=== PATIENT | male | born 1980 | race African-American/Black ===

== ENCOUNTER → 2018-12-21 | Outpatient (CLI) | payer BC, OTHER ==
[~2018-12-21] MED LIST: AMOX-355 PO; AZIT-21 PO; CYCL10TA9 PO; HYDR-3720 PO; NAPR-1071 PO; NAPR-243 PO; NAPR220T29 PO; PRD10T PO; PRD20T PO
[2018-12-21 11:15] LABS: BASOPHILS % (AUTO) 1 % (0-10); EOSINOPHILS # (AUTO) 0.1 10^3/uL (0.0-0.3); EOSINOPHILS % (AUTO) 3 % (0-10); HEMATOCRIT 44 % (40-54); HEMOGLOBIN 15.1 G/DL (13.3-17.7); LYMPHOCYTES # (AUTO) 1.3 X 10^3 (1.0-4.0); LYMPHOCYTES % (AUTO) 34 % (12-44); MEAN CORPUSCULAR HEMOGLOBIN 30 PG (25-34); MEAN CORPUSCULAR HGB CONC 34 G/DL (32-36); MEAN CORPUSCULAR VOLUME 89 FL (80-99); MEAN PLATELET VOLUME 9.6 FL (7.4-10.4); MONOCYTES # (AUTO) 0.6 X 10^3 (0.0-1.0); MONOCYTES % (AUTO) 15 % (0-12); NEUTROPHILS # (AUTO) 1.8 X 10^3 (1.8-7.8); NEUTROPHILS % (AUTO) 47 % (42-75); PLATELET COUNT 397 10^3/uL (130-400); RED CELL DISTRIBUTION WIDTH 14.4 % (10.0-14.5); WHITE BLOOD COUNT 3.8 10^3/uL (4.3-11.0)
[2018-12-21 13:17] LABS: ALANINE AMINOTRANSFERASE 15 U/L (0-55); ALBUMIN 4.2 GM/DL (3.2-4.5); ALKALINE PHOSPHATASE 48 U/L (40-136); BILIRUBIN,TOTAL 0.9 MG/DL (0.1-1.0); BUN/CREATININE RATIO 7; CALCIUM 9.5 MG/DL (8.5-10.1); CARBON DIOXIDE 24 MMOL/L (21-32); CHLORIDE 105 MMOL/L (98-107); CREATININE SERUM 1.14 MG/DL (0.60-1.30); GFR ESTIMATED > 60; GLUCOSE 61 MG/DL (70-105); LIPASE 36 U/L (8-78); POTASSIUM 3.6 MMOL/L (3.6-5.0); SODIUM 140 MMOL/L (135-145)
== END ==
LOC: LAB 10:38
PROVIDERS: ATTEND Family Medicine
DX: R63.4 Abnormal weight loss (principal); R11.10 Vomiting, unspecified; R10.10 Upper abdominal pain, unspecified
CPT/HCPCS: 36415; 80053; 83690; 85025

== ENCOUNTER 2019-04-28 14:29 | Emergency (ER) | payer SELFPAY ==
[~2019-04-28] VITALS: Ht 180 cm; Wt 77.2 kg
[2019-04-28] MEDS ORDERED: LACTATED RINGERS 1,000 ML IV ONE (15:18)
[2019-04-28 15:26] LABS: BASOPHILS % (AUTO) 0 % (0-10); EOSINOPHILS % (AUTO) 0 % (0-10); HEMATOCRIT 47 % (40-54); HEMOGLOBIN 16.9 G/DL (13.3-17.7); LYMPHOCYTES # (AUTO) 2.5 X 10^3 (1.0-4.0); LYMPHOCYTES % (AUTO) 32 % (12-44); MEAN CORPUSCULAR HEMOGLOBIN 31 PG (25-34); MEAN CORPUSCULAR HGB CONC 36 G/DL (32-36); MEAN CORPUSCULAR VOLUME 85 FL (80-99); MEAN PLATELET VOLUME 10.7 FL (7.4-10.4); MONOCYTES # (AUTO) 0.9 X 10^3 (0.0-1.0); MONOCYTES % (AUTO) 11 % (0-12); NEUTROPHILS # (AUTO) 4.5 X 10^3 (1.8-7.8); NEUTROPHILS % (AUTO) 57 % (42-75); PLATELET COUNT 440 10^3/uL (130-400); RED CELL DISTRIBUTION WIDTH 13.4 % (10.0-14.5)
[2019-04-28] MEDS ORDERED: PANTOPRAZOLE 40 MG (PROTONIX) VIAL IV ONE (15:30)
[2019-04-28] MEDS ORDERED: FAMOTIDINE 20MG/2ML IV (PEPCID) IVP ONE (15:30)
[2019-04-28] MEDS ORDERED: fentaNYL INJECTION 100 MCG/2 ML AMP IVP ONE (15:30)
[2019-04-28] MEDS ORDERED: ONDANSETRON 4 MG/2 ML (SDV) Z0FRAN IVP ONE (15:30)
[2019-04-28 15:39] LABS: PROTHROMBIN TIME PATIENT 13.4 SEC (12.2-14.7)
[2019-04-28 15:42] LABS: ALANINE AMINOTRANSFERASE 18 U/L (0-55); ALBUMIN 4.7 GM/DL (3.2-4.5); ALKALINE PHOSPHATASE 56 U/L (40-136); BILIRUBIN,TOTAL 1.1 MG/DL (0.1-1.0); BUN/CREATININE RATIO 8; CALCIUM 10.6 MG/DL (8.5-10.1); CARBON DIOXIDE 20 MMOL/L (21-32); CHLORIDE 100 MMOL/L (98-107); CREATININE SERUM 1.25 MG/DL (0.60-1.30); GFR ESTIMATED > 60; GLUCOSE 118 MG/DL (70-105); LIPASE 31 U/L (8-78); MAGNESIUM 1.9 MG/DL (1.6-2.4); POTASSIUM 3.5 MMOL/L (3.6-5.0); SODIUM 138 MMOL/L (135-145); TOTAL PROTEIN 9.4 GM/DL (6.4-8.2)
[2019-04-28] MEDS ORDERED: IOHEXOL 350 MG/ML 100 ML (OMNIPAQUE 350) VIAL IV ONE (16:00)
[2019-04-28] MEDS ORDERED: HOLD METFORMIN - RECEIVED CONTRAST 20 ML VIAL IV SCH (16:00)
[2019-04-28] MEDS ORDERED: CATHETER FLUSH 10 ML SYR IV PRN (16:00)
[2019-04-28] MEDS ORDERED: NS 100 ML (IVPB) BAG IV ONE (16:00)
[2019-04-28 16:05] LABS: OCCULT BLOOD,GASTRIC FLUID POSITIVE (NEGATIVE)
--- NOTE | 2019-04-28 16:39 | Diagnostic Imaging Report ---
EXAMINATION: CT Abdomen and Pelvis with intravenous contrast. TECHNIQUE: Multiple contiguous axial images were obtained through the abdomen and pelvis after the uneventful administration of intravenous contrast. All CT scans use one or more of the following dose optimizing techniques: automated exposure control, MA and/or KvP adjustment based on a patient size and exam type, or iterative reconstruction. HISTORY: Epigastric pain COMPARISON: 09/01/2013 FINDINGS: The previously seen perilymphatic nodules have mostly resolved with a few residual areas of perilymphatic nodularity suggestive of a history of sarcoidosis. The liver is normal without focal lesion. There is no biliary ductal dilation. Gallbladder is normal. Pancreas is normal. Spleen is normal. Adrenal glands are normal. The kidneys are normal. There is no hydronephrosis. Urinary bladder is normal. There are no dilated loops of large or small bowel. No obstruction or inflammation. No free fluid or air. No abdominal or pelvic lymphadenopathy. Aorta is normal in caliber without aneurysm. There are no suspicious osseus lesions. IMPRESSION: 1. No acute abnormality in the abdomen or pelvis. Dictated by: Dictated on workstation # [id number]
--- NOTE | 2019-04-28 16:53 | ED Abdominal Pain ---
General Chief Complaint: Abdominal/GI Problems Stated Complaint: SEVERE ABD PAIN Nursing Triage Note: c/o n/v x 3 days. reports having similar problem 1 year ago and 'having 3 holes in his stomach open, which they sewed closed' patient reports he believes one opened up. Sepsis Screen: No Definite Risk Source of Information: Patient Exam Limitations: No Limitations History of Present Illness Date Seen by Provider: Apr 28, 2019 Time Seen by Provider: 15:07 Initial Comments This 38-year-old man presents to the emergency room with escalating upper abdominal pain and vomiting for the past 3 days. He reports a history of perforated stomach ulcers that required surgery last April. He had been on medications for treatment of ulcers but stopped taking them a couple months ago. He has been vomiting with hematemesis for the past 3 days. He denies any fever, constipation, or diarrhea. He drank one beer 2 days ago but otherwise denies any frequent alcohol use. His primary care providers Dr. Montenegro. Allergies and Home Medications Allergies Coded Allergies: No Known Drug Allergies (Unverified , 09/01/13) Home Medications Cyclobenzaprine HCl 10 Mg Tablet, 10 MG PO Q8H PRN for SPASMS Prescribed by: MARY LUI on 01/08/16 1007 Naproxen 500 Mg Tablet, 500 MG PO BID Prescribed by: MARY LUI on 01/08/16 1007 Ondansetron 4 Mg Tab.rapdis, 4 MG SL Q4H PRN for NAUSEA/VOMITING Prescribed by: JAZMINE DELUNA on 04/28/19 174 Prednisone 20 Mg Tab, 40 MG PO DAILY Prescribed by: MARY LUI on 01/08/16 1007 Sucralfate 1 Gm Tablet, 1 GM PO QID Crash and mix with about 10 ML of water to make a slurry. Take 30 minutes before meals and bedtime Prescribed by: JAZMINE DELUNA on 04/28/19 174 Patient Home Medication List Home Medication List Reviewed: Yes Review of Systems Review of Systems Constitutional: no symptoms reported EENTM: No Symptoms Reported Respiratory: No Symptoms Reported Cardiovascular: No Symptoms Reported Gastrointestinal: See HPI Genitourinary: No Symptoms Reported Musculoskeletal: no symptoms reported Skin: no symptoms reported Psychiatric/Neurological: No Symptoms Reported Endocrine: No Symptoms Reported Hematologic/Lymphatic: See HPI Past Bcfrioz-Pwevjf-Dnjtze Hx Past Med/Social Hx: Reviewed and Corrections made Patient Social History Alcohol Use: Denies Use Recreational Drug Use: No Smoking Status: Never a Smoker Recent Foreign Travel: No Contact w/Someone Who Travel: No Recent Infectious Disease Expo: No Immunizations Up To Date Tetanus Booster (TDap): Less than 5yrs Past Medical History Surgeries: Yes (ACLS/MENISCUS L KNEE) Abdominal (Repair of perforated stomach ulcer) Respiratory: Yes (MULTIPLE NODULES/ SARCOIDOSIS) Cardiac: No Neurological: No Reproductive Disorders: No Sexually Transmitted Disease: No Gastrointestinal: Yes Ulcer Musculoskeletal: No Endocrine: No Cancer: No Psychosocial: No Integumentary: No Blood Disorders: No Physical Exam Vital Signs Vital Signs - First Documented 04/28/19 14:39 Temp 37.2 Pulse 95 Resp 26 B/P (MAP) 137/110 (119) Pulse Ox 100 Capillary Refill : Less Than 3 Seconds Height/Weight/BMI Height: 5'11" Weight: 200lbs. oz. 90.386103tg; 23.00 BMI Method:Stated General Appearance: WD/WN, mild distress HEENT: PERRL/EOMI, normal ENT inspection Neck: normal inspection Respiratory: lungs clear, normal breath sounds, no respiratory distress, no accessory muscle use Cardiovascular: regular rate, rhythm, no edema, no murmur Gastrointestinal: normal bowel sounds, soft, guarding, tenderness (Marked tenderness in the epigastrium) Extremities: normal inspection, no pedal edema Neurologic/Psychiatric: personal care assistant II-XII nml as tested, no motor/sensory deficits, alert, normal mood/affect, oriented x 3 Skin: normal color, warm/dry Progress/Results/Core Measures Results/Orders Lab Results Laboratory Tests Test 04/28/19 14:45 04/28/19 15:18 04/28/19 17:24 Range/Units White Blood Count 8.0 4.3-11.0 10^3/uL Red Blood Count 5.52 4.35-5.85 10^6/uL Hemoglobin 16.9 13.3-17.7 G/DL Hematocrit 47 40-54 % Mean Corpuscular Volume 85 80-99 FL Mean Corpuscular Hemoglobin 31 25-34 PG Mean Corpuscular Hemoglobin Concent 36 32-36 G/DL Red Cell Distribution Width 13.4 10.0-14.5 % Platelet Count 440 H 130-400 10^3/uL Mean Platelet Volume 10.7 H 7.4-10.4 FL Neutrophils (%) (Auto) 57 42-75 % Lymphocytes (%) (Auto) 32 12-44 % Monocytes (%) (Auto) 11 0-12 % Eosinophils (%) (Auto) 0 0-10 % Basophils (%) (Auto) 0 0-10 % Neutrophils # (Auto) 4.5 1.8-7.8 X 10^3 Lymphocytes # (Auto) 2.5 1.0-4.0 X 10^3 Monocytes # (Auto) 0.9 0.0-1.0 X 10^3 Eosinophils # (Auto) 0.0 0.0-0.3 10^3/uL Basophils # (Auto) 0.0 0.0-0.1 10^3/uL Prothrombin Time 13.4 12.2-14.7 SEC INR Comment 1.0 0.8-1.4 Activated Partial Thromboplast Time 26 24-35 SEC Sodium Level 138 135-145 MMOL/L Potassium Level 3.5 L 3.6-5.0 MMOL/L Chloride Level 100 98-107 MMOL/L Carbon Dioxide Level 20 L 21-32 MMOL/L Anion Gap 18 H 5-14 MMOL/L Blood Urea Nitrogen 10 7-18 MG/DL Creatinine 1.25 0.60-1.30 MG/DL Estimat Glomerular Filtration Rate > 60 BUN/Creatinine Ratio 8 Glucose Level 118 H 70-105 MG/DL Calcium Level 10.6 H 8.5-10.1 MG/DL Corrected Calcium 8.5-10.1 MG/DL Magnesium Level 1.9 1.6-2.4 MG/DL Total Bilirubin 1.1 H 0.1-1.0 MG/DL Aspartate Amino Transf (AST/SGOT) 25 5-34 U/L Alanine Aminotransferase (ALT/SGPT) 18 0-55 U/L Alkaline Phosphatase 56 40-136 U/L Total Protein 9.4 H 6.4-8.2 GM/DL Albumin 4.7 H 3.2-4.5 GM/DL Lipase 31 8-78 U/L Serum Alcohol < 10 <10 MG/DL Gastric Fluid Occult Blood POSITIVE H NEGATIVE Urine Opiates Screen NEGATIVE NEGATIVE Urine Oxycodone Screen NEGATIVE NEGATIVE Urine Methadone Screen NEGATIVE NEGATIVE Urine Propoxyphene Screen NEGATIVE NEGATIVE Urine Barbiturates Screen NEGATIVE NEGATIVE Ur Tricyclic Antidepressants Screen NEGATIVE NEGATIVE Urine Phencyclidine Screen NEGATIVE NEGATIVE Urine Amphetamines Screen NEGATIVE NEGATIVE Urine Methamphetamines Screen NEGATIVE NEGATIVE Urine Benzodiazepines Screen POSITIVE H NEGATIVE Urine Cocaine Screen NEGATIVE NEGATIVE Urine Cannabinoids Screen POSITIVE H NEGATIVE My Orders Orders - JAZMINE PARIKH MD Alcohol (04/28/19 15:18) Cbc With Automated Diff (04/28/19 15:18) Comprehensive Metabolic Panel (04/28/19:18) Lipase (04/28/19:18) Magnesium (04/28/19 15:18) Protime With Inr (04/28/19 15:18) Partial Thromboplastin Time (04/28/19 15:18) Ed Iv/Invasive Line Start (04/28/19:18) Lactated Ringers (Lr 1000 Ml Iv Solution (04/28/19 15:18) Pantoprazole Injection (Protonix Injecti (04/28/19 15:30) Famotidine Injection (Pepcid Injection) (04/28/19 15:30) Fentanyl Injection (Sublimaze Injection (04/28/19 15:30) Ondansetron Injection (Zofran Injectio (04/28/19 15:30) Ct Abdomen/Pelvis W (04/28/19 15:43) Occult Blood,Gastric Fluid (04/28/19 15:44) Iohexol Injection (Omnipaque 350 Mg/Ml 1 (04/28/19 16:00) Received Contrast (Hold Metformin- Contr (04/28/19 16:00) Sodium Chloride Flush (Catheter Flush Sy (04/28/19 16:00) Ns (Ivpb) (Sodium Chloride 0.9% Ivpb Bag (04/28/19 16:00) Occult Blood,Gastric Fluid (04/28/19 15:54) Drug Screen Stat (Urine) (04/28/19 16:03) Medications Given in ED Current Medications Medications Dose Ordered Sig/David Route Start Time Stop Time Status Last Admin Dose Admin Famotidine 20 mg ONCE ONCE IVP 04/28/19 15:30 04/28/19 15:31 DC 04/28/19 15:36 20 MG Fentanyl Citrate 75 mcg ONCE ONCE IVP 04/28/19 15:30 04/28/19 15:31 DC 04/28/19 15:36 75 MCG Iohexol 100 ml ONCE ONCE IV 04/28/19 16:00 04/28/19 16:01 DC 04/28/19 16:25 97 ML Lactated Ringer's 1,000 ml @ 0 mls/hr Q0M ONCE IV 04/28/19 15:18 04/28/19 15:22 DC 04/28/19 15:36 0 MLS/HR Ondansetron HCl 8 mg ONCE ONCE IVP 04/28/19 15:30 04/28/19 15:31 DC 04/28/19 15:36 8 MG Pantoprazole 80 mg ONCE ONCE IV 04/28/19 15:30 04/28/19 15:31 DC 04/28/19 15:36 80 MG Sodium Chloride 10 ml NEEDED PRN IV 04/28/19 16:00 04/28/19 18:23 DC 04/28/19 16:25 10 ML Sodium Chloride 100 ml ONCE ONCE IV 04/28/19 16:00 04/28/19 16:01 DC 04/28/19 16:25 80 ML Vital Signs/I&O 04/28/19 04/28/19 14:39 18:23 Temp 37.2 37.2 Pulse 95 88 Resp 26 26 B/P (MAP) 137/110 (119) 143/98 (119) Pulse Ox 100 100 Blood Pressure Mean: 119 Progress Progress Note : Progress Note Patient was treated with Zofran, Protonix, and Pepcid. Labs were obtained along with CT for further evaluation. There is no evidence of acute abdomen on imaging. Fentanyl was given for pain control. Patient was dismissed with prescriptions and instructions to seek endoscopy promptly. He received a liter of IV fluid and had no further vomiting after treatment. Diagnostic Imaging Diagonstic Imaging: CT Plain Films/CT/US/NM/MRI: abdomen, pelvis Comments CT abdomen and pelvis viewed by me and report reviewed. See report below: NAME: CLAUDIA BRADY [facility] REC#: [id number] PT STATUS: REG ER : 1980 PHYSICIAN: JAZMINE PARIKH MD ADMIT DATE: 04/28/19/ER Signed Date of Exam: 04/28/19 CT ABDOMEN/PELVIS W EXAMINATION: CT Abdomen and Pelvis with intravenous contrast. TECHNIQUE: Multiple contiguous axial images were obtained through the abdomen and pelvis after the uneventful administration of intravenous contrast. All CT scans use one or more of the following dose optimizing techniques: automated exposure control, MA and/or KvP adjustment based on a patient size and exam type, or iterative reconstruction. HISTORY: Epigastric pain COMPARISON: 09/01/2013 FINDINGS: The previously seen perilymphatic nodules have mostly resolved with a few residual areas of perilymphatic nodularity suggestive of a history of sarcoidosis. The liver is normal without focal lesion. There is no biliary ductal dilation. Gallbladder is normal. Pancreas is normal. Spleen is normal. Adrenal glands are normal. The kidneys are normal. There is no hydronephrosis. Urinary bladder is normal. There are no dilated loops of large or small bowel. No obstruction or inflammation. No free fluid or air. No abdominal or pelvic lymphadenopathy. Aorta is normal in caliber without aneurysm. There are no suspicious osseus lesions. IMPRESSION: 1. No acute abnormality in the abdomen or pelvis. Dictated by: Dictated on workstation # [id number] Dict: 04/28/19 1633 Trans: 04/28/19 1637 Interpreted by: SOFÍA DOBBINS MD Electronically signed by: SOFÍA DOBBINS MD 04/28/19 1637 Departure Impression Primary Impression: Hematemesis Qualified Codes: K92.0 - Hematemesis Additional Impressions: Epigastric pain History of stomach ulcers Disposition: 01 HOME, SELF-CARE Condition: Improved Departure-Patient Inst. Decision time for Depature: 17:36 Referrals: CARLOTTA CARTER RICHARD A DO (PCP/Family) Primary Care Physician Patient Instructions: Acid Reflux (Gastroesophageal Reflux Disease) in Adults, Gastritis (DC), Acute Abdomen (Belly Pain), Adult (DC) Add. Discharge Instructions: 1. Obtain omeprazole and Pepcid (famotidine) [id number]. Take omeprazole 20 mg twice daily and famotidine 20 mg twice daily for at least one month. 2. Also take Carafate (sucralfate) as prescribed. Take this 30 minutes before eating or drinking at mealtimes and before bed (4 times daily). 3. Follow-up with Dr. Montenegro as soon as possible. 4. Follow-up with a surgeon such as a Dr. Carter as soon as possible for endoscopy. 5. Avoid the following: Eating large meals, eating close to bedtime, caffeine, carbonation, chocolate, citrus fruits and juices, tomato products, alcohol, tobacco, mints, spicy foods, fatty or greasy foods, NSAID medications such as ibuprofen or naproxen, or anything else you know irritates your stomach. 6. Return to emergency room if you have worsening symptoms despite treatment. 7. You may use Zofran (ondansetron) as prescribed for nausea and vomiting. All discharge instructions reviewed with patient and/or family. Voiced understanding. Scripts Ondansetron (Ondansetron Odt) 4 Mg Tab.rapdis 4 MG SL Q4H PRN for NAUSEA/VOMITING, #10 TAB Prov: JAZMINE PARIKH MD 04/28/19 Sucralfate (Carafate) 1 Gm Tablet 1 GM PO QID, #120 TAB Crash and mix with about 10 ML of water to make a slurry. Take 30 minutes before meals and bedtime Prov: JAZMINE PARIKH MD 04/28/19 Copy Copies To 1: CARLOTTA CARTER DO Copies To 2: ENZO MONTENEGRO DO JAZMINE PARIKH MD Apr 28, 2019 16:53
[2019-04-28] MEDS ORDERED: ONDA4TAB11 SL (17:43)
[2019-04-28] MEDS ORDERED: SUCR1TAB36 PO (17:43)
[2019-04-28 17:46] LABS: AMPHETAMINE SCREEN, URINE NEGATIVE (NEGATIVE); BARBITURATE SCREEN URINE NEGATIVE (NEGATIVE); BENZODIAZEPINES SCREEN URINE POSITIVE (NEGATIVE); CANNABINOID SCREEN, URINE POSITIVE (NEGATIVE); COCAINE SCREEN URINE NEGATIVE (NEGATIVE); METHADONE STAT NEGATIVE (NEGATIVE); METHAMPHETAMINE SCREEN URINE S NEGATIVE (NEGATIVE); OPIATE SCREEN URINE NEGATIVE (NEGATIVE); OXYCODONE STAT NEGATIVE (NEGATIVE); PROPOXYPHENE STAT NEGATIVE (NEGATIVE); TRICYCLIC ANTIDEPRESSANTS SCRE NEGATIVE (NEGATIVE)
[2019-04-28 18:23] VITALS: BP 143/98
== END 2019-04-28 18:23 | disposition home or self-care (01) ==
LOC: EDUNIT# 14:29 → ER 14:31
DX: K92.0 Hematemesis (principal); R10.13 Epigastric pain; Z87.19 Personal history of other diseases of the digestive system; Z79.52 Long term (current) use of systemic steroids
CPT/HCPCS: 36415; 74177; 80053; 80306; 80320; 82271; 83690; 83735; 85025; 85610; 85730; 96374; 96375

== ENCOUNTER 2019-07-29 09:08 | Emergency (ER) | payer BC, OTHER ==
[~2019-07-29] VITALS: Ht 180.3 cm; Wt 81.4 kg
[~2019-07-29 09:08] MED LIST changes: +ONDA4TAB11 SL; +SUCR1TAB36 PO
[2019-07-29] MEDS ORDERED: TRAM-42 PO (09:56)
--- NOTE | 2019-07-29 09:56 | ED Lower Extremity ---
General Chief Complaint: Lower Extremity Stated Complaint: ACHILLES PAIN Nursing Triage Note: AMB TO ED REPORTS HAS HAD PAIN IN L ANKLE FOR SEVERAL DAYS. THINKS IT MAY BE HIS ACHILLES TENDON. HAS NOT TAKEN ANY THING FOR PAIN Nursing Sepsis Screen: No Definite Risk Source: patient Exam Limitations: no limitations History of Present Illness Date Seen by Provider: Jul 29, 2019 Time Seen by Provider: 09:38 Allergies and Home Medications Allergies Coded Allergies: No Known Drug Allergies (Unverified , 09/01/13) Home Medications Cyclobenzaprine HCl 10 Mg Tablet, 10 MG PO Q8H PRN for SPASMS Prescribed by: MARY LUI on 01/08/16 1007 Naproxen 500 Mg Tablet, 500 MG PO BID Prescribed by: MARY LUI on 01/08/16 1007 Ondansetron 4 Mg Tab.rapdis, 4 MG SL Q4H PRN for NAUSEA/VOMITING Prescribed by: JAZMINE DELUNA on 04/28/19 174 Prednisone 20 Mg Tab, 40 MG PO DAILY Prescribed by: MARY LUI on 01/08/16 1007 Sucralfate 1 Gm Tablet, 1 GM PO QID Crash and mix with about 10 ML of water to make a slurry. Take 30 minutes before meals and bedtime Prescribed by: JAZMINE DELUNA on 04/28/19 174 Tramadol HCl 50 Mg Tablet, 50 MG PO Q6H PRN for PAIN-MODERATE (5-7) Prescribed by: JAZMINE DELUNA on 07/29/19 0956 Past Boylokt-Wwpfti-Clrohf Hx Patient Social History Alcohol Use: Denies Use Recreational Drug Use: No Smoking Status: Never a Smoker Recent Foreign Travel: No Contact w/Someone Who Travel: No Recent Infectious Disease Expo: No Immunizations Up To Date Tetanus Booster (TDap): Less than 5yrs Past Medical History Surgeries: Yes (ACLS/MENISCUS L KNEE) Abdominal Respiratory: Yes (MULTIPLE NODULES/ SARCOIDOSIS) Cardiac: No Neurological: No Reproductive Disorders: No Sexually Transmitted Disease: No Gastrointestinal: Yes Ulcer Musculoskeletal: No Endocrine: No Cancer: No Psychosocial: No Integumentary: No Blood Disorders: No Physical Exam Vital Signs Vital Signs - First Documented 07/29/19 09:11 Temp 36.9 Pulse 69 Resp 18 B/P (MAP) 129/83 (98) Pulse Ox 100 O2 Delivery Room Air Capillary Refill : Less Than 3 Seconds Height, Weight, BMI Height: 5'11" Weight: 200lbs. oz. 90.132966ws; 25.00 BMI Method:Stated Progress/Results/Core Measures Results/Orders Vital Signs/I&O 07/29/19 07/29/19 09:11 10:06 Temp 36.9 36.9 Pulse 69 69 Resp 18 18 B/P (MAP) 129/83 (98) 129/83 (98) Pulse Ox 100 100 O2 Delivery Room Air Blood Pressure Mean: 98 Departure Impression Primary Impression: Left Achilles tendinitis Disposition: HOME, SELF-CARE Condition: Improved Departure-Patient Inst. Referrals: ENZO MONTENEGRO DO (PCP/Family) Primary Care Physician CAMILLA CAMPBELL MD, MICHAEL P MD Patient Instructions: Achilles Tendinopathy, Achilles Tendinopathy Exercises Add. Discharge Instructions: Follow-up with an orthopedist as soon as possible to discuss your chronic left knee issues and the tendinopathy in your left Achilles. You may be experiencing tendinitis due to irregular use of the left leg from your chronic knee problems. You may need a referral from Dr. MONTENEGRO to see an orthopedist if your insurance requires it. Since your stomach issues prohibit use of NSAIDs like ibuprofen, use a combination of Tylenol (acetaminophen) up to 1000 mg every 6 hours as needed and the tramadol (Ultram) as prescribed. You may need to adjust your foot wear to reduce pressure on your Achilles tendon. Avoid any rapid movements or high velocity movements that strain the Achilles tendon. Icing in 20 minute intervals may also be helpful in reducing pain. Return to care if you have any further problems or concerns. All discharge instructions reviewed with patient and/or family. Voiced under standing. Scripts Tramadol HCl (Ultram) 50 Mg Tablet 50 MG PO Q6H PRN for PAIN-MODERATE (5-7), #20 TAB Prov: JAZMINE PARIKH MD 07/29/19 JAZMINE PARIKH MD Jul 29, 2019 09:56
[2019-07-29 10:06] VITALS: BP 129/83
== END 2019-07-29 10:06 | disposition home or self-care (01) ==
LOC: EDUNIT# 09:08 → ER 09:09
DX: M76.62 Achilles tendinitis, left leg (principal); Z79.52 Long term (current) use of systemic steroids
CPT/HCPCS: 99283